=== PATIENT | female | born 1995 | race African-American/Black ===

== ENCOUNTER 2017-09-11 23:50 | Emergency (ER) | payer MEDICAID ==
[~2017-09-11] VITALS: Ht 162.6 cm; Wt 77.2 kg
[2017-09-12] MEDS ORDERED: ACETAMINOPHEN 500MG TABLET PO ONE (01:00)
[2017-09-12 01:13] LABS: BASOPHILS % 0.9 % (0.0-2.0); EOSINOPHILS % 5.1 % (0.0-5.0); HEMATOCRIT. 34.5 % (36.0-48.0); HEMOGLOBIN. 11.7 g/dL (12.0-16.0); LYMPHOCYTES % 36.7 % (20.0-50.0); MEAN CORPUSCULAR HEMOGLOBIN 29.9 pg (28.0-32.0); MEAN CORPUSCULAR VOLUME 88.3 fL (81.0-99.0); MEAN PLATELET VOLUME 7.4 fl (7.4-10.4); MONOCYTES % 6.6 % (2.0-8.0); NEUTROPHILS % 50.7 % (40.0-76.0); PLATELET 257 x1000/uL (130-400); RED BLOOD CELL COUNT 3.91 mill/uL (4.2-5.4)
[2017-09-12 01:18] LABS: CHLORIDE 105 mEq/L (98-107)
[2017-09-12 02:15] VITALS: BP 139/69
== END 2017-09-12 02:27 | disposition home or self-care (01) ==
LOC: ER 23:50
DX: O26.891 Other specified pregnancy related conditions, first trimester (principal); R07.89 Other chest pain; F41.9 Anxiety disorder, unspecified; J45.909 Unspecified asthma, uncomplicated; Z98.890 Other specified postprocedural states; Z3A.00 Weeks of gestation of pregnancy not specified
CPT/HCPCS: 36415; 80053; 81025; 85025; 93005; 99285; Z7610

== ENCOUNTER 2018-09-09 19:47 | Emergency (ER) | payer MEDICAID ==
[~2018-09-09] VITALS: Ht 162.6 cm; Wt 76.0 kg
[2018-09-09] MEDS ORDERED: ACETAMINOPHEN 325MG TABLET PO PRN (21:45)
[2018-09-09 22:36] LABS: BASOPHILS % 0.8 % (0.0-2.0); EOSINOPHILS % 4.2 % (0.0-5.0); HEMATOCRIT. 36.1 % (36.0-48.0); HEMOGLOBIN. 12.4 g/dL (12.0-16.0); LYMPHOCYTES % 25.3 % (20.0-50.0); MEAN CORPUSCULAR HEMOGLOBIN 31.9 pg (28.0-32.0); MEAN CORPUSCULAR VOLUME 93.3 fL (81.0-99.0); MEAN PLATELET VOLUME 8.5 fl (7.4-10.4); MONOCYTES % 5.4 % (2.0-8.0); NEUTROPHILS % 64.3 % (40.0-76.0); PLATELET 212 x1000/uL (130-400); RED BLOOD CELL COUNT 3.87 mill/uL (4.2-5.4); RED CELL DISTRIBUTION WIDTH 13.1 % (11.6-14.6)
[2018-09-09 22:39] LABS: CHLORIDE 106 mEq/L (98-107)
[2018-09-09 23:01] LABS: CLARITY URINE CLEAR (CLEAR); COLOR URINE YELLOW (YELLOW); KETONES URINE NEGATIVE (NEGATIVE); LEUKOCYTE ESTERASE URINE 1+ (NEGATIVE); NITRITE URINE NEGATIVE (NEGATIVE); OCCULT BLOOD URINE NEGATIVE (NEGATIVE); PH URINE 6.5 (4.5-8.0); PROTEIN URINE NEGATIVE (NEGATIVE); UROBILINOGEN URINE 0.2 E.U./dL (0.2-1.0)
[2018-09-09 23:02] LABS: B-HCG QUANTITATIVE 113713 mIU/mL (<3)
[2018-09-10] VITALS: BP 110/67
== END 2018-09-10 00:01 | disposition home or self-care (01) ==
LOC: ER 20:00
DX: O20.0 Threatened abortion (principal); O23.41 Unspecified infection of urinary tract in pregnancy, first trimester; O98.811 Other maternal infectious and parasitic diseases complicating pregnancy, first trimester; B37.3 Candidiasis of vulva and vagina; O99.511 Diseases of the respiratory system complicating pregnancy, first trimester; J45.909 Unspecified asthma, uncomplicated; O99.331 Smoking (tobacco) complicating pregnancy, first trimester; F17.200 Nicotine dependence, unspecified, uncomplicated; Z98.890 Other specified postprocedural states; Z3A.10 10 weeks gestation of pregnancy
CPT/HCPCS: 36415; 76801; 76817; 80053; 81003; 81025; 84702; 85025; 86850; 86900; 86901; 99284; Z7610

== ENCOUNTER 2019-01-27 12:41 | Emergency (ER) | payer BC ==
[~2019-01-27] VITALS: Ht 172.7 cm; Wt 85.0 kg
[2019-01-27 13:01] VITALS: BP 144/69
== END 2019-01-27 20:11 | disposition left against medical advice (07) ==
LOC: ER 12:41
DX: Z53.21 Procedure and treatment not carried out due to patient leaving prior to being seen by health care provider (principal)

== ENCOUNTER 2019-10-07 14:23 | Inpatient (IN) | payer MEDICAID ==
[~2019-10-07] VITALS: Ht 162.6 cm; Wt 92.1 kg
[~2019-10-07 14:23] MED LIST: ALBUTEROL; FAMO-135 PO; IBUP-2030 MT; PREN1TAB78 MT
[2019-10-07] MEDS ORDERED: FUROSEMIDE 40MG/4ML VIAL IV ONE (16:00)
[2019-10-07] MEDS ORDERED: ASPIRIN 81MG TABLET PO ONE (16:00)
[2019-10-07] MEDS ORDERED: NITROGLYCERIN OINT 1GM/INCH UDPKT TD ONE (16:00)
[2019-10-07] MEDS ORDERED: CEFTRIAXONE 1 G PREMIX 50 ML IV ONE (16:00)
[2019-10-07] MEDS ORDERED: AZITHROMYCIN 500 MG in DEXT 5% WATER 250 ML IV ONE (16:00)
[2019-10-07 16:23] LABS: BASOPHILS % 0.5 % (0.0-2.0); EOSINOPHILS % 5.9 % (0.0-5.0); HEMATOCRIT. 30.1 % (36.0-48.0); LYMPHOCYTES % 17.8 % (20.0-50.0); MEAN CORPUSCULAR HEMOGLOBIN 28.8 pg (28.0-32.0); MEAN CORPUSCULAR VOLUME 87.1 fL (81.0-99.0); MEAN PLATELET VOLUME 7.6 fl (7.4-10.4); MONOCYTES % 6.2 % (2.0-8.0); NEUTROPHILS % 69.6 % (40.0-76.0); PLATELET 248 x1000/uL (130-400); RED BLOOD CELL COUNT 3.46 mill/uL (4.2-5.4); RED CELL DISTRIBUTION WIDTH 15.7 % (11.6-14.6)
[2019-10-07 16:30] LABS: CHLORIDE 110 mEq/L (98-107)
[2019-10-07 18:54] LABS: CLARITY URINE CLOUDY (CLEAR); COLOR URINE RED (YELLOW); KETONES URINE NEGATIVE (NEGATIVE); LEUKOCYTE ESTERASE URINE 2+ (NEGATIVE); NITRITE URINE NEGATIVE (NEGATIVE); OCCULT BLOOD URINE 3+ (NEGATIVE); PROTEIN URINE 2+ (NEGATIVE); UROBILINOGEN URINE 0.2 E.U./dL (0.2-1.0)
[2019-10-07] MEDS ORDERED: ACETAMINOPHEN 325MG TABLET PO PRN (19:30)
[2019-10-07] MEDS ORDERED: ALBUTEROL 6.7GM HFA INHALER ORI PRN (19:30)
[2019-10-07] MEDS ORDERED: ONDANSETRON HCL 4MG/2ML INJ IV PRN (19:30)
[2019-10-08 04:20] VITALS: BP_SYST 112; BP_SYST 135; BP_DIAS 82
[2019-10-08] MEDS: MORPHINE SULFATE 2 MG/ML CPJ (NOT FOR IM USE) IV PRN ×2 (05:06→13:17)
[2019-10-08 08:00] VITALS: BP 113/61
[2019-10-08] MEDS: FUROSEMIDE 40MG/4ML VIAL IVP SCH (08:00)
[2019-10-08 12:00] VITALS: BP 143/92
[2019-10-08 16:00] VITALS: BP 124/81
[2019-10-08] MEDS: DOCUSATE SODIUM 250MG CAPSULE PO SCH (16:12)
[2019-10-08] MEDS ORDERED: AZITHROMYCIN 500 MG TABLET PO SCH (17:00)
[2019-10-08] MEDS ORDERED: MONTELUKAST SODIUM 10MG TABLET PO SCH (17:00)
[2019-10-08] MEDS: HYDROCODONE/ACETAMINOPHEN 5/325MG TABLET PO PRN ×2 (17:36→21:01)
[2019-10-08] MEDS ORDERED: BUDESONIDE 0.5MG/2ML NEB HHN SCH (18:00)
[2019-10-08 20:54] VITALS: BP 149/89
[2019-10-08] MEDS ORDERED: CEFTRIAXONE 1 G PREMIX 50 ML IV SCH (21:00)
[2019-10-09] VITALS: BP 142/91
[2019-10-09] MEDS ORDERED: CEFTRIAXONE 1,000 MG in DEXTROSE 5% WATER 50 ML IV SCH (01:00)
[2019-10-09] MEDS: IPRATROPIUM/ALBUTEROL 0.5-3(2.5)MG/3ML NEB HHN SCH ×3 (01:35→13:18)
[2019-10-09 04:00] VITALS: BP 138/85
[2019-10-09] MEDS: HYDROCODONE/ACETAMINOPHEN 5/325MG TABLET PO PRN ×3 (04:33→15:07)
[2019-10-09 07:12] LABS: CHLORIDE 106 mEq/L (98-107)
[2019-10-09 07:56] LABS: BASOPHILS % 0.7 % (0.0-2.0); EOSINOPHILS % 9.2 % (0.0-5.0); HEMATOCRIT. 33.8 % (36.0-48.0); HEMOGLOBIN. 11.1 g/dL (12.0-16.0); LYMPHOCYTES % 26.5 % (20.0-50.0); MEAN CORPUSCULAR HEMOGLOBIN 28.2 pg (28.0-32.0); MEAN CORPUSCULAR VOLUME 85.7 fL (81.0-99.0); MEAN PLATELET VOLUME 7.9 fl (7.4-10.4); MONOCYTES % 7.8 % (2.0-8.0); NEUTROPHILS % 55.8 % (40.0-76.0); PLATELET 279 x1000/uL (130-400); RED BLOOD CELL COUNT 3.95 mill/uL (4.2-5.4); RED CELL DISTRIBUTION WIDTH 15.6 % (11.6-14.6)
[2019-10-09 08:00] VITALS: BP 115/75
[2019-10-09] MEDS: DOCUSATE SODIUM 250MG CAPSULE PO SCH (09:09)
[2019-10-09] MEDS: FUROSEMIDE 40MG/4ML VIAL IVP SCH (09:09)
[2019-10-09 12:06] VITALS: BP 124/70
[2019-10-09] MEDS ORDERED: LEVO500T2 MT (12:50)
[2019-10-09 16:00] VITALS: BP 105/73
[2019-10-09 16:06] VITALS: BP 124/70
== END 2019-10-09 17:40 | disposition home or self-care (01) | DRG 561 ==
LOC: ER 14:23 → SUPCPDRO 18:02 → ENRESERV 20:14 → CANRESERV 20:14 → MICUSO 23:26 → 7WST 10-08 01:27 → 6WST 10-08 20:43
PROVIDERS: ADMIT Internal Medicine; ATTEND Internal Medicine
DX: O99.53 Diseases of the respiratory system complicating the puerperium (principal); I11.0 Hypertensive heart disease with heart failure; J45.901 Unspecified asthma with (acute) exacerbation; J96.00 Acute respiratory failure, unspecified whether with hypoxia or hypercapnia; E43 Unspecified severe protein-calorie malnutrition; D64.9 Anemia, unspecified; O90.89 Other complications of the puerperium, not elsewhere classified; O90.81 Anemia of the puerperium; O99.285 Endocrine, nutritional and metabolic diseases complicating the puerperium; O86.20 Urinary tract infection following delivery, unspecified; O99.215 Obesity complicating the puerperium; O89.1 Cardiac complications of anesthesia during the puerperium; O25.3 Malnutrition in the puerperium; E87.8 Other disorders of electrolyte and fluid balance, not elsewhere classified; O16.5 Unspecified maternal hypertension, complicating the puerperium; E66.9 Obesity, unspecified; I31.3 Pericardial effusion (noninflammatory); I50.9 Heart failure, unspecified; Z20.828 Contact with and (suspected) exposure to other viral communicable diseases; Z98.891 History of uterine scar from previous surgery; Z79.899 Other long term (current) drug therapy; Z71.3 Dietary counseling and surveillance
CPT/HCPCS: 36415; 71045; 80048; 80053; 81003; 83605; 83880; 84443; 84484; 85025; 87635; 93005; 93306; 93970; 94640; 99285; J0456; J0696; J1940; J2270; J7060; J7626

== ENCOUNTER 2020-05-09 14:32 | Emergency (ER) | payer BC, MEDICAID ==
[~2020-05-09] VITALS: Ht 162.6 cm; Wt 91.0 kg
[~2020-05-09 14:32] MED LIST changes: +LEVO500T2 MT
[2020-05-09] MEDS ORDERED: ALBUTEROL (0.083%) 2.5MG/3ML NEB HHN ONE (15:00)
[2020-05-09] MEDS ORDERED: IPRATROPIUM BROMIDE (0.02%) 0.5MG/2.5ML NEB HHN ONE (15:00)
[2020-05-09] MEDS ORDERED: PREDNISONE 20MG TABLET PO ONE (15:00)
[2020-05-09] MEDS ORDERED: ALBU90AE2 INH (16:03)
[2020-05-09] MEDS ORDERED: P50 MT (16:03)
[2020-05-09] MEDS ORDERED: ALBU05 NEB ×2 (16:03→16:09)
[2020-05-09] MEDS ORDERED: ALBU6.7H9 INH (16:09)
[2020-05-09] MEDS ORDERED: P50 PO (16:10)
[2020-05-09 16:20] VITALS: BP 144/84
== END 2020-05-09 16:20 | disposition home or self-care (01) ==
LOC: ER 14:32
DX: J45.901 Unspecified asthma with (acute) exacerbation (principal); F12.10 Cannabis abuse, uncomplicated; Z79.899 Other long term (current) drug therapy; Z98.890 Other specified postprocedural states
CPT/HCPCS: 94640; 99283; J7512; Z7610

== ENCOUNTER 2021-01-31 12:56 | Emergency (ER) | payer BC, MEDICAID ==
[~2021-01-31] VITALS: Ht 162.6 cm; Wt 75.0 kg
[~2021-01-31 12:56] MED LIST changes: +ALBU05 NEB; +ALBU6.7H9 INH; +P50 PO
[2021-01-31] MEDS ORDERED: ACETAMINOPHEN WITH CODEINE 300/30MG TABLET PO ONE (15:45)
[2021-01-31 15:46] VITALS: BP 130/67
[2021-01-31] MEDS ORDERED: FLUT9.9S BOTHNSTRLS (15:55)
[2021-01-31] MEDS ORDERED: D-ME473S50 PO (15:58)
[2021-01-31] MEDS ORDERED: PSEU-207 MT (15:59)
[2021-01-31] MEDS ORDERED: ALBU6.7H9 INH (16:02)
== END 2021-01-31 16:41 | disposition home or self-care (01) ==
LOC: ER 12:56
DX: J06.9 Acute upper respiratory infection, unspecified (principal); R05.9 Cough, unspecified; J45.909 Unspecified asthma, uncomplicated; E03.9 Hypothyroidism, unspecified; F12.10 Cannabis abuse, uncomplicated; Z20.822 Contact with and (suspected) exposure to COVID-19; Z98.890 Other specified postprocedural states
CPT/HCPCS: 87426; 93005; 99284

== ENCOUNTER 2021-02-08 17:49 | Emergency (ER) | payer MEDICAID ==
[~2021-02-08] VITALS: Ht 162.6 cm; Wt 73.0 kg
[~2021-02-08 17:49] MED LIST changes: +D-ME473S50 PO; +FLUT9.9S BOTHNSTRLS; +PSEU-207 MT
[2021-02-08] MEDS ORDERED: ACETAMINOPHEN 325MG TABLET PO ONE (20:15)
[2021-02-08] MEDS ORDERED: IBUPROFEN 400MG TABLET PO ONE (21:00)
[2021-02-08 21:02] LABS: CLARITY URINE CLEAR (CLEAR); COLOR URINE YELLOW (YELLOW); KETONES URINE NEGATIVE (NEGATIVE); LEUKOCYTE ESTERASE URINE NEGATIVE (NEGATIVE); NITRITE URINE NEGATIVE (NEGATIVE); OCCULT BLOOD URINE NEGATIVE (NEGATIVE); PROTEIN URINE NEGATIVE (NEGATIVE); SPECIFIC GRAVITY URINE 1.013 (1.005-1.030); UROBILINOGEN URINE 0.2 E.U./dL (0.2-1.0)
[2021-02-08 21:49] VITALS: BP 111/86
[2021-02-08] MEDS ORDERED: IBUP-2028 MT (22:22)
== END 2021-02-08 22:31 | disposition home or self-care (01) ==
LOC: ER 17:49
DX: M54.50 Low back pain, unspecified (principal); J45.909 Unspecified asthma, uncomplicated; F12.10 Cannabis abuse, uncomplicated; Z79.899 Other long term (current) drug therapy; Z86.39 Personal history of other endocrine, nutritional and metabolic disease; Z98.890 Other specified postprocedural states
CPT/HCPCS: 71045; 72070; 72100; 81003; 81025; 93005; 99285

== ENCOUNTER 2021-05-17 00:31 | Emergency (ER) | payer MEDICAID ==
[~2021-05-17] VITALS: Ht 167.6 cm; Wt 80.0 kg
[~2021-05-17 00:31] MED LIST changes: +IBUP-2028 MT
[2021-05-17 01:24] LABS: BASOPHILS % 0.5 % (0.0-2.0); EOSINOPHILS % 0.9 % (0.0-5.0); HEMATOCRIT. 33.8 % (36.0-48.0); HEMOGLOBIN. 11.7 g/dL (12.0-16.0); LYMPHOCYTES % 12.5 % (20.0-50.0); MEAN CORPUSCULAR VOLUME 95.6 fL (81.0-99.0); MEAN PLATELET VOLUME 7.9 fl (7.4-10.4); MONOCYTES % 5.1 % (2.0-8.0); PLATELET 236 x1000/uL (130-400); RED BLOOD CELL COUNT 3.54 mill/uL (4.2-5.4); RED CELL DISTRIBUTION WIDTH 12.7 % (11.6-14.6)
[2021-05-17] MEDS ORDERED: SODIUM CHLORIDE 0.9% 1,000 ML IV ONE (01:30)
[2021-05-17 01:46] LABS: CHLORIDE 105 mEq/L (98-107)
[2021-05-17 03:02] LABS: B-HCG QUANTITATIVE 26176 mIU/mL (<3)
[2021-05-17 03:55] LABS: CLARITY URINE CLOUDY (CLEAR); COLOR URINE RED (YELLOW); KETONES URINE NEGATIVE (NEGATIVE); LEUKOCYTE ESTERASE URINE 1+ (NEGATIVE); NITRITE URINE NEGATIVE (NEGATIVE); OCCULT BLOOD URINE 3+ (NEGATIVE); PH URINE 5.5 (4.5-8.0); PROTEIN URINE 2+ (NEGATIVE); SPECIFIC GRAVITY URINE 1.014 (1.005-1.030); UROBILINOGEN URINE 0.2 E.U./dL (0.2-1.0)
[2021-05-17] MEDS ORDERED: KETOROLAC 15MG/ML VIAL IV ONE (04:00)
[2021-05-17 04:08] VITALS: BP 113/72
== END 2021-05-17 04:20 | disposition home or self-care (01) ==
LOC: ER 00:31
DX: O03.4 Incomplete spontaneous abortion without complication (principal); F12.10 Cannabis abuse, uncomplicated; N93.9 Abnormal uterine and vaginal bleeding, unspecified; J45.909 Unspecified asthma, uncomplicated; Z79.899 Other long term (current) drug therapy; Z98.890 Other specified postprocedural states; Z90.49 Acquired absence of other specified parts of digestive tract
CPT/HCPCS: 36415; 76830; 76856; 80053; 81003; 81025; 84702; 85025; 86850; 86900; 86901; 96374; 99284; J1885; J7030

== ENCOUNTER 2021-05-19 02:31 | Day surgery (SDC) | payer MEDICAID ==
[~2021-05-19] VITALS: Ht 167.6 cm; Wt 84.0 kg
[2021-05-19 03:07] LABS: BASOPHILS % 0.6 % (0.0-2.0); EOSINOPHILS % 5.3 % (0.0-5.0); HEMOGLOBIN. 7.3 g/dL (12.0-16.0); LYMPHOCYTES % 21.7 % (20.0-50.0); MEAN CORPUSCULAR HEMOGLOBIN 32.7 pg (28.0-32.0); MEAN CORPUSCULAR VOLUME 93.7 fL (81.0-99.0); MEAN PLATELET VOLUME 7.5 fl (7.4-10.4); MONOCYTES % 5.5 % (2.0-8.0); NEUTROPHILS % 66.9 % (40.0-76.0); PLATELET 197 x1000/uL (130-400); RED BLOOD CELL COUNT 2.22 mill/uL (4.2-5.4); RED CELL DISTRIBUTION WIDTH 13.1 % (11.6-14.6)
[2021-05-19 03:12] LABS: HEMATOCRIT. 20.8 % (36.0-48.0)
[2021-05-19] MEDS ORDERED: SODIUM CHLORIDE 0.9% 1,000 ML IV ONE ×2 (03:15→04:00)
[2021-05-19] MEDS ORDERED: MORPHINE SULFATE 4 MG/ML CPJ (NOT FOR IM USE) IV ONE (03:15)
[2021-05-19] MEDS ORDERED: ONDANSETRON HCL 4MG/2ML INJ IV ONE (03:15)
[2021-05-19 03:20] LABS: CHLORIDE 104 mEq/L (98-107)
[2021-05-19 03:45] LABS: B-HCG QUANTITATIVE 4480 mIU/mL (<3)
[2021-05-19] MEDS ORDERED: ONDANSETRON HCL 4MG/2ML INJ IV STA (03:50)
[2021-05-19] MEDS ORDERED: MORPHINE SULFATE 4 MG/ML CPJ (NOT FOR IM USE) IV STA (03:50)
[2021-05-19] MEDS ORDERED: DEXT 5%/LR + PITOCIN 20UNITS/L 1,000 ML IV ONE (04:00)
[2021-05-19 04:25] LABS: HEMOGLOBIN 7.4 g/dL (12.0-16.0); MEAN CORPUSCULAR HEMOGLOBIN 33.1 pg (28.0-32.0); MEAN CORPUSCULAR VOLUME 93.4 fL (81.0-99.0); PLATELET 194 x1000/uL (130-400); RED BLOOD CELL COUNT 2.23 mill/uL (4.2-5.4); RED CELL DISTRIBUTION WIDTH 13.1 % (11.6-14.6)
[2021-05-19 04:29] LABS: HEMATOCRIT 20.8 % (36.0-48.0)
[2021-05-19] MEDS ORDERED: POTASSIUM CHLORIDE 20MEQ TABLET SR PO ONE (04:30)
[2021-05-19 05:40] VITALS: BP 126/58
[2021-05-19] MEDS ORDERED: FENTANYL CITRATE/PF 50MCG/ML 2ML VIAL ONE (06:21)
[2021-05-19] MEDS ORDERED: PROPOFOL 200MG/20ML VIAL IV ONE (06:21)
[2021-05-19] MEDS ORDERED: MIDAZOLAM HCL 2 MG/2 ML VIAL ONE (06:21)
[2021-05-19] MEDS ORDERED: LIDOCAINE HCL 2% JELLY 5ML ONE (06:22)
[2021-05-19] MEDS ORDERED: PHENYLEPHRINE HCL 10 MG/ML 1ML (IV VIAL) IV ONE (06:27)
[2021-05-19] MEDS ORDERED: ONDANSETRON HCL 4MG/2ML INJ ONE (06:46)
[2021-05-19] MEDS ORDERED: RHO(D) IMMUNE GLOBULIN 300 MCG/SYR IM SCH (07:00)
[2021-05-19] MEDS ORDERED: RHO(D) IMMUNE GLOBULIN 300 MCG/SYR IM ONE (07:00)
[2021-05-19] MEDS ORDERED: IBUPROFEN 600MG TABLET PO SCH (07:00)
[2021-05-19] MEDS ORDERED: HYDROMORPHONE HCL/PF 2MG/ML CPJ IV PRN (07:30)
== END 2021-05-19 09:00 | disposition home or self-care (01) ==
LOC: ER 02:45 → OR 06:20 → CANBEDREQ 21:01
PROVIDERS: ATTEND Obstetrics & Gynecology
DX: O26.891 Other specified pregnancy related conditions, first trimester (principal); O99.011 Anemia complicating pregnancy, first trimester; D64.9 Anemia, unspecified; O03.4 Incomplete spontaneous abortion without complication; O99.331 Smoking (tobacco) complicating pregnancy, first trimester; F17.200 Nicotine dependence, unspecified, uncomplicated; J45.909 Unspecified asthma, uncomplicated; Z3A.01 Less than 8 weeks gestation of pregnancy
CPT/HCPCS: 36415; 76801; 76817; 80053; 84702; 85025; 85027; 86850; 86900; 86901; 86920; 87426; 88305; 99285; J2250; J2270; J2370; J2405; J2590; J2704; J3010; J7030; P9016

== ENCOUNTER 2022-03-24 16:38 | Emergency (ER) | payer MEDICAID ==
[~2022-03-24 16:38] MED LIST changes: +ALBU6.7H3 INH; -ALBU6.7H9 INH
== END 2022-03-24 17:43 | disposition left against medical advice (07) ==
LOC: ER 17:10
DX: Z53.21 Procedure and treatment not carried out due to patient leaving prior to being seen by health care provider (principal)

== ENCOUNTER 2022-10-08 13:10 | Emergency (ER) | payer MEDICAID ==
[~2022-10-08] VITALS: Ht 162.6 cm; Wt 84.0 kg
[2022-10-08 13:20] VITALS: BP 137/88; RESP 20; TEMP 98.4; O2SAT 97
[2022-10-08 13:24] VITALS: PULSE 92
[2022-10-08] MEDS ORDERED: ACETAMINOPHEN 325MG TABLET PO ONE (14:45)
[2022-10-08 15:37] LABS: BASOPHILS % 0.5 % (0.0-2.0); EOSINOPHILS % 6.6 % (0.0-5.0); HEMATOCRIT. 35.1 % (36.0-48.0); HEMOGLOBIN. 11.7 g/dL (12.0-16.0); LYMPHOCYTES % 19.9 % (20.0-50.0); MEAN CORPUSCULAR HEMOGLOBIN 32.3 pg (28.0-32.0); MEAN CORPUSCULAR HGB CONC 33.2 g/dL (31.0-37.0); MEAN CORPUSCULAR VOLUME 97.2 fL (81.0-99.0); MEAN PLATELET VOLUME 7.8 fl (7.4-10.4); MONOCYTES % 8.3 % (2.0-8.0); NEUTROPHILS % 64.7 % (40.0-76.0); PLATELET 242 x1000/uL (130-400); RED BLOOD CELL COUNT 3.62 mill/uL (4.2-5.4); RED CELL DISTRIBUTION WIDTH 13.1 % (11.6-14.6); WHITE BLOOD COUNT 6.2 x1000/uL (4.5-11.0)
[2022-10-08 15:46] LABS: CHLORIDE 105 mEq/L (98-107); INDEX HEMOLYSI 1 (1-3); INDEX ICTERIC 1 (1-4); INDEX LIPEMIC 1 (1-3); POTASSIUM 3.5 mEq/L (3.5-5.1); SODIUM 135 mEq/L (136-145)
[2022-10-08 15:56] LABS: ALANINE AMINOTRANSFERASE 30 IU/L (13-61); ALBUMIN 3.7 g/dL (3.4-5.0); ASPARTATE AMINOTRANSFERASE 16 IU/L (15-37); BILIRUBIN TOTAL 0.3 mg/dL (0.1-1.0); CALCIUM 8.8 mg/dL (8.5-10.1); CARBON DIOXIDE 23 mEq/L (21-32); CREATININE 0.7 mg/dL (0.6-1.3); GLUCOSE 88 mg/dL (70-105); PROTEIN TOTAL 7.5 g/dL (6.0-8.3); UREA NITROGEN BLOOD 6 mg/dL (7-21)
[2022-10-08 16:03] LABS: HCG SCREEN POSITIVE
[2022-10-08] MEDS ORDERED: METHYLERGONOVINE MALEATE 0.2 MG/ML IM STA (18:33)
[2022-10-08] MEDS ORDERED: METHYLERGONOVINE MALEATE 0.2 MG/ML IM NR (19:15)
[2022-10-08] MEDS ORDERED: MISOPROSTOL 200MCG TABLET PO NR (19:15)
[2022-10-08] MEDS ORDERED: ACET-2708 MT (19:20)
== END 2022-10-08 19:44 | disposition home or self-care (01) ==
LOC: ER 13:26
DX: N99.820 Postprocedural hemorrhage of a genitourinary system organ or structure following a genitourinary system procedure (principal); N93.9 Abnormal uterine and vaginal bleeding, unspecified; J45.909 Unspecified asthma, uncomplicated; F12.90 Cannabis use, unspecified, uncomplicated; Z98.890 Other specified postprocedural states; Z79.899 Other long term (current) drug therapy; Z79.1 Long term (current) use of non-steroidal anti-inflammatories (NSAID)
CPT/HCPCS: 99285; 76801; 80053; 84703; 84702; 85025; 86850; 86900; 86901; 36415; 76817; 96372; J2210

== ENCOUNTER 2024-10-29 16:26 | Emergency (ER) | payer MEDICAID ==
[~2024-10-29] VITALS: Ht 167.6 cm; Wt 82.0 kg
[~2024-10-29 16:26] MED LIST changes: +ACET-2708 MT; -PSEU-207 MT; +PSEU-307 MT
[2024-10-29 16:30] VITALS: O2SAT 95
[2024-10-29] MEDS: LORAZEPAM 1MG TABLET PO ONE (20:02)
[2024-10-29 20:05] VITALS: BP 132/77; PULSE 72; RESP 18; TEMP 36.8; O2SAT 100
== END 2024-10-29 20:08 | disposition home or self-care (01) ==
LOC: ER 16:26
DX: F41.9 Anxiety disorder, unspecified (principal); F41.0 Panic disorder [episodic paroxysmal anxiety]; J45.909 Unspecified asthma, uncomplicated; F12.90 Cannabis use, unspecified, uncomplicated; Z79.899 Other long term (current) drug therapy; Z98.890 Other specified postprocedural states; Z88.6 Allergy status to analgesic agent
CPT/HCPCS: 99283

== ENCOUNTER 2024-11-18 13:43 | Emergency (ER) | payer MEDICAID ==
[~2024-11-18] VITALS: Ht 167.6 cm; Wt 75.0 kg
[2024-11-18 13:57] VITALS: O2SAT 97
[2024-11-18] MEDS: LIDOCAINE HCL 1% 20ML VIAL INFIL ONE (16:58)
[2024-11-18] MEDS: HYDROCODONE/ACETAMINOPHEN 5/325MG TABLET PO ONE (17:21)
[2024-11-18] MEDS ORDERED: CEPH250C2 MT (17:46)
[2024-11-18] MEDS ORDERED: ACET-2708 MT (17:46)
[2024-11-18 18:18] VITALS: BP 135/85; PULSE 97; RESP 18; TEMP 36.1; O2SAT 97
== END 2024-11-18 18:19 | disposition home or self-care (01) ==
LOC: ER 13:43
DX: L02.214 Cutaneous abscess of groin (principal); J45.909 Unspecified asthma, uncomplicated; F12.90 Cannabis use, unspecified, uncomplicated; Z88.6 Allergy status to analgesic agent
CPT/HCPCS: 99284; 10061; 81025; J2003